=== PATIENT | male | born 1940 | race African-American/Black ===

== ENCOUNTER 2019-07-24 09:13 | Outpatient (CLI) | payer MEDICARE ==
[~2019-07-24 09:13] MED LIST: APRESOLINE50 MG ORAL; ASPIR-LOW81 MG PO; AZITHROMYCIN250 MG PO; CARDIZEM CD300 MG PO; COZAAR25 MG PO; COZAAR50 MG ORAL; FLOMAX0.4 MG ORAL; GLUCOPHAGE500 MG ORAL; LASIX20 MG PO; METOPROLOL TAR100 MG PO; PROTONIX40 MG ORAL; SIMVASTATIN20 MG PO
[2019-07-24] MEDS ORDERED: METFORMIN HCL500 M1 ORAL (14:22)
[2019-07-24] MEDS ORDERED: FUROSEMIDE40 MG ORAL (14:22)
[2019-07-24] MEDS ORDERED: AVAPRO150 MG ORAL (14:22)
[2019-07-24] MEDS ORDERED: POTASSIUM99 M3 PO (14:22)
[2019-07-24] MEDS ORDERED: MIRTAZAPINE15 MG ORAL (14:22)
[2019-07-24 14:23] VITALS: BP 147/68
--- NOTE | 2019-07-24 19:30 | Consultation ---
DATE OF CONSULTATION: 07/24/2019 CONSULTING PHYSICIAN: Osiel Ramirez M.D. CHIEF COMPLAINT: Referral for colonoscopy. HISTORY OF PRESENT ILLNESS: This is an 79-year-old male with history of colon cancer in 1994. Last colonoscopy was more than 5 years ago. He was referred to us by primary care doctor requesting repeat colonoscopy. PAST MEDICAL HISTORY: 1. BPH. 2. Diabetes. 3. Hypertension. 4. CHF. 5. GERD. PAST SURGICAL HISTORY: 1. History of colonic resection in 1994. 2. Back surgery. MEDICATIONS: Please see medication reconciliation list. FAMILY HISTORY: Noncontributory. SOCIAL HISTORY: The patient denies any tobacco, alcohol, or drug abuse. ALLERGIES: No known drug allergies. REVIEW OF SYSTEMS: Positive for GERD, otherwise 10-point review of systems was negative. PHYSICAL EXAMINATION: VITAL SIGNS: Temperature 97.8, blood pressure is 147/68, pulse is 60, respirations 20. HEENT: Normocephalic, atraumatic. Sclerae anicteric. NECK: Supple. No evidence of obvious lymphadenopathy. CARDIOVASCULAR: Regular rate and rhythm. Plus S1 and S2. No obvious murmur. LUNGS: Decreased breath sounds bilaterally based on the supine exam. ABDOMEN: Soft, nontender. No rebound. No guarding. No peritoneal sign. There is a scar from prior abdominal surgeries. EXTREMITIES: No cyanosis, no clubbing, no edema. ASSESSMENT AND PLAN: This is an 79-year-old male with past medical history of colonic cancer, has not had a colonoscopy over 5 years is requesting repeat colonoscopy by him and also by primary care physician. The patient was given instruction for colonoscopy pending authorization. I want to thank Dr. Cristiano Reynoso for this kind referral. Osiel Ramirez M.D. DR: DAYTON JOB#: [id number] CC: Cristiano Reynoso M.D.; Fax#: [phone]
== END 2019-07-24 11:13 | disposition home or self-care (01) ==
LOC: PAN 09:13
DX: K21.9 Gastro-esophageal reflux disease without esophagitis (principal); Z85.038 Personal history of other malignant neoplasm of large intestine; E11.9 Type 2 diabetes mellitus without complications; I11.0 Hypertensive heart disease with heart failure; I50.9 Heart failure, unspecified
CPT/HCPCS: G0463

== ENCOUNTER 2019-08-13 07:09 | Day surgery (SDC) | payer MEDICARE ==
[~2019-08-13] VITALS: Ht 185.4 cm; Wt 72.6 kg
[2019-08-13] VITALS (7 sets, daily range): BP systolic 164–174; BP diastolic 69–81
[~2019-08-13 07:09] MED LIST changes: +AVAPRO150 MG ORAL; +FUROSEMIDE40 MG ORAL; +METFORMIN HCL500 M1 ORAL; +MIRTAZAPINE15 MG ORAL; +POTASSIUM99 M3 PO
[2019-08-13] MEDS ORDERED: LR 1000ml ONE (09:00)
[2019-08-13] MEDS ORDERED: Propofol 200mg/20ml IV ONE (09:00)
[2019-08-13] MEDS ORDERED: fentaNYL 100 mcg/2 mL IV ONE (09:00)
--- NOTE | 2019-08-13 09:06 | Short Stay Surgery H&P ---
History of Present Illness History of Present Illness Chief Complaint see recent consult note HPI Neal Mendoza is a 79 year old male who was admitted on for Colon Cancer Patient History Allergies: Coded Allergies: No Known Allergies (Unverified , 10/22/12) Medication History Scheduled Aspirin* (Aspir-Low*), 81 MG PO DAILY, (Reported) Furosemide* (Lasix*), Unknown Dose ORAL DAILY, (Reported) Irbesartan* (Avapro*), Unknown Dose ORAL DAILY, (Reported) Metformin Hcl* (Metformin Hcl*), 500 MG ORAL DAILY, (Reported) Mirtazapine* (Remeron*), Unknown Dose ORAL BEDTIME, (Reported) Pantoprazole* (Protonix*), 40 MG ORAL DAILY Potassium Gluconate (Potassium), Unknown Dose PO DAILY, (Reported) Simvastatin (Zocor), 20 MG PO QHS, (Reported) Tamsulosin HCl (Flomax), 0.4 MG ORAL BEDTIME Physical Exam Vital Signs Last Vital Signs Date Time Temp Pulse Resp B/P (MAP) Pulse Ox O2 Delivery O2 Flow Rate FiO2 08/13/19 08:05 Room Air 08/13/19 07:54 97.0 57 18 164/81 100 Plan Attestation Are the patient's medical conditions optimized for surgery? Osiel Ramirez MD Aug 13, 2019 09:06
--- NOTE | 2019-08-13 09:06 | Pre-Procedure Note/Attestation ---
Pre-Procedure Note/Attestation Complete Prior to Procedure Planned Procedure: not applicable Procedure Narrative: colonoscopy Indications for Procedure Pre-Operative Diagnosis: colon cancer Attestation I attest that I discussed the nature of the procedure; its benefits; risks and complications; and alternatives (and the risks and benefits of such alternatives ), prior to the procedure, with the patient (or the patient's legal senior sales representative). I attest that, if there was a reasonable possibility of needing a blood transfusion, the patient (or the patient's legal senior sales representative) was given the [facility] standardized written summary, pursuant to the [place] Blood Safety Act ([place] Health and Safety Code # 1645, as amended). I attest that I re-evaluated the patient just prior to the surgery and that there has been no change in the patient's H&P, except as documented below: Osiel Ramirez MD Aug 13, 2019 09:06
[2019-08-13] MEDS ORDERED: LR 1000ml 1,000 ML IVLG SCH (09:22)
--- NOTE | 2019-08-13 09:22 | Anethesia Preoperative Eval ---
Anesthesia Pre-op PMH/ROS General Date of Evaluation: Aug 13, 2019 Time of Evaluation: 08:50 Anesthesiologist: Rossi ASA Score: ASA 2 Mallampati Score Class I : Soft palate, uvula, fauces, pillars visible Class II: Soft palate, uvula, fauces visible Class III: Soft palate, base of uvula visible Class IV: Only hard plate visible Mallampati Classification: Class II Surgeon: James Diagnosis: [place] Surgical Procedure: Colonoscopy Anesthesia History: none Family History: no anesthesia problems Allergies: Coded Allergies: No Known Allergies (Unverified , 10/22/12) Medications: see eMAR Patient NPO?: Yes Past Medical History Cardiovascular: Reports: HTN; Denies: CAD, [place], valve dz, arrhythmia, other Pulmonary: Denies: asthma, COPD, JYOTI, other Gastrointestinal/Genitourinary: Reports: GERD, other - BPH; Denies: CRI, ESRD Neurologic/Psychiatric: Denies: dementia, CVA, depression/anxiety, TIA, other Endocrine: Reports: DM - stable on pills; Denies: hypothyroidism, steroids, other HEENT: Denies: cataract (L), cataract (R), glaucoma, CHALKYITSIK (L), CHALKYITSIK (R), other Hematology/Immune: Denies: anemia, DVT, bleeding disorder, other Musculoskeletal/Integumentary: Denies: OA, RA, DJD, DDD, edema, other PMH Narrative: as above PSxH Narrative: T&A partial bowel [id number], back Sx Anesthesia Pre-op Phys. Exam Physician Exam Last Vital Signs Date Time Temp Pulse Resp B/P (MAP) Pulse Ox O2 Delivery O2 Flow Rate FiO2 08/13/19 08:05 Room Air 08/13/19 07:54 97.0 57 18 164/81 100 Constitutional: NAD Neurologic: CN 2-12 intact Cardiovascular: RRR, no M/R/G Respiratory: CTA Gastrointestinal: S/NT/ND Airway Exam Mallampati Score: Class II MO: full Neck: stiff ROM: limited Teeth: missing Dentures: no upper, no lower Anesthesia Pre-op A/P Studies Pre-op Studies: EKG - NSR Risk Assessment & Plan Assessment: ASA 2 Plan: Brayan Conrad MD Aug 13, 2019 09:22
--- NOTE | 2019-08-13 09:28 | Endoscopy Procedure Note ---
Endoscopy Procedure Note General Indication for Procedure: screening Procedures Performed: colonoscopy Operative Findings/Diagnosis: one polyp Specimen: yes Pt Tolerated Procedure Well: Yes Estimated Blood Loss: none Anesthesia Anesthesiologist: lizbeth Anesthesia: MAC Inserted Devices Implant(s) used?: No Quality Quality of Bowel Preparation: Fair Did scope reach the cecum?: Yes Was there any complications?: No GI Core Measures 50 yrs or older w/o bx or poly: No 10yrs. F/U recommended: Yes If not recommended, why?: Above average risk 18 years or older w/prev. colo: Yes <3yrs. since last colonoscopy: No Osiel Ramirez MD Aug 13, 2019 09:28
[2019-08-13] MEDS ORDERED: fentaNYL 100 mcg/2 mL IV PRN (09:30)
--- NOTE | 2019-08-13 09:38 | Immediate Post-Op Evaluation ---
Immediate Post-Op Evalulation Immediate Post-Op Evalulation Procedure: Colonoscopy polypectomy Date of Evaluation: Aug 13, 2019 Time of Evaluation: 09:37 IV Fluids: 300 Blood Products: none Estimated Blood Loss: none Urinary Output: none Blood Pressure Systolic: 164 Blood Pressure Diastolic: 78 Pulse Rate: 62 Respiratory Rate: 20 O2 Sat by Pulse Oximetry: 98 Temperature (Fahrenheit): 97.6 Pain Score (1-10): 1 Nausea: No Vomiting: No Complications none Patient Status: awake, patent, none Hydration Status: adequate Brayan Richey MD Aug 13, 2019 09:38
--- NOTE | 2019-08-13 10:27 | 48 Hour Post Anesthesia Eval ---
Post Anesthesia Evaluation Procedure: Colonoscopy polypectomy Date of Evaluation: Aug 13, 2019 Time of Evaluation: 10:26 Blood Pressure Systolic: 168 0: 74 Pulse Rate: 62 Respiratory Rate: 20 Temperature (Fahrenheit): 97.6 O2 Sat by Pulse Oximetry: 98 Airway: patent Nausea: No Vomiting: No Pain Intensity: 1 Hydration Status: adequate Cardiopulmonary Status: stable Mental Status/LOC: patient returned to baseline Follow-up Care/Observations: n/a Post-Anesthesia Complications: none Follow-up care needed: ready to discharge Brayan Richey MD Aug 13, 2019 10:27
--- NOTE | 2019-08-13 10:45 | Procedure Note ---
DATE OF PROCEDURE: 08/13/2019 SURGEON: Osiel Ramirez M.D. REFERRING PHYSICIAN: Cristiano Reynoso M.D. PROCEDURE: Colonoscopy with snare polypectomy. ANESTHESIA: Per Dr. Richey. INSTRUMENT: Olympus adult flexible colonoscope. INDICATION: History of colonic cancer, here for referral for followup colonoscopy. The procedure, risks, benefits, and possible consequences, including hemorrhage, aspiration, perforation and infection, and alternative treatments, were explained to the patient/legal guardian by Dr. Osiel Ramirez and the patient/legal guardian understood and accepted these risks. DESCRIPTION OF PROCEDURE: After informed consent was obtained and the patient was adequately sedated, first rectal exam was performed, which was positive for internal hemorrhoids. Then, the adult scope was advanced from the rectum into about 15 cm. I think this is most probably anastomosis site from prior colonic surgery. We could not pass the adult colonoscope. We had to switch to the upper scope in order to get to the cecum. Quality of prep was fair. I would say about 30% of the colonic mucosa was not examined given this prep. There was solid stool especially in the left colon making examination limited. There was a polyp in the ascending colon, measured roughly about 6 mm, removed with hot snare polypectomy technique. The patient had evidence of diverticulosis throughout the colon. At about 15 cm, as I mentioned, there was an area with angulation and possible narrowing possibly from prior colonic surgery. Retroflexion of rectum was performed, which showed evidence of internal hemorrhoids. SUMMARY OF FINDINGS: 1. One colonic polyp removed, see above for details. 2. Diverticulosis. 3. Fair colonic prep. 4. Anastomosis at 15 and narrowing at that area. 5. Internal hemorrhoids. RECOMMENDATIONS: Follow up pathology. Given this prep, we recommend repeat colonoscopy in three years. I want to thank, Dr. Cristiano Reynoso, for this kind referral. Osiel Ramirez M.D. DR: Yvette JOB#: [id number] CC: Cristiano Reynoso M.D.; Fax#: [phone]
== END 2019-08-13 11:40 | disposition home or self-care (01) ==
LOC: GAS 07:09
DX: Z12.11 Encounter for screening for malignant neoplasm of colon (principal); I10 Essential (primary) hypertension; K21.9 Gastro-esophageal reflux disease without esophagitis; E11.9 Type 2 diabetes mellitus without complications; K63.5 Polyp of colon; K57.90 Diverticulosis of intestine, part unspecified, without perforation or abscess without bleeding; K63.89 Other specified diseases of intestine; K64.8 Other hemorrhoids; D12.3 Benign neoplasm of transverse colon; Z79.899 Other long term (current) drug therapy; Z79.82 Long term (current) use of aspirin; Z79.84 Long term (current) use of oral hypoglycemic drugs
CPT/HCPCS: 45385; 82962; J2704; J3010; J7120; 94003; 94150

== ENCOUNTER 2019-10-09 08:55 | Outpatient (CLI) | payer MEDICARE ==
--- NOTE | 2019-10-09 09:26 | General Progress Note ---
Assessment/Plan Problem List: (1) S/P colon resection ICD Codes: Z98.89 - Other specified postprocedural states SNOMED: 84060098, 46374778, 978125180 (2) HTN (hypertension) ICD Codes: I10 - Essential (primary) hypertension SNOMED: 44565454 (3) Diabetes ICD Codes: E11.9 - Type 2 diabetes mellitus without complications SNOMED: 02195581 (4) Dysphagia ICD Codes: R13.10 - Dysphagia, unspecified SNOMED: 70016237, 910900567 (5) Chest pain ICD Codes: R07.9 - Chest pain, unspecified SNOMED: 38040042 Assessment/Plan: SUMMARY OF FINDINGS: 1. One colonic polyp removed, see above for details. 2. Diverticulosis. 3. Fair colonic prep. 4. Anastomosis at 15 and narrowing at that area. 5. Internal hemorrhoids. RECOMMENDATIONS: Follow up pathology. Given this prep, we recommend repeat colonoscopy in three years add miralax avoid lactose Subjective ROS Limited/Unobtainable: Yes Allergies: Coded Allergies: No Known Allergies (Unverified , 10/22/12) Objective General Appearance: alert EENT: normal ENT inspection Neck: supple Cardiovascular: normal rate Respiratory/Chest: lungs clear Abdomen: normal bowel sounds, non tender, soft Osiel Ramirez MD Oct 09, 2019 09:26
[2019-10-09 09:45] VITALS: BP 136/68
== END 2019-10-09 10:55 | disposition home or self-care (01) ==
LOC: PAN 08:55
DX: R13.10 Dysphagia, unspecified (principal); R07.9 Chest pain, unspecified; E11.9 Type 2 diabetes mellitus without complications; I10 Essential (primary) hypertension; Z98.890 Other specified postprocedural states; K63.5 Polyp of colon; K57.90 Diverticulosis of intestine, part unspecified, without perforation or abscess without bleeding; K64.8 Other hemorrhoids